=== PATIENT | female | born 1945 | race American Indian/Alaskan Native ===

== ENCOUNTER 2017-02-27 13:19 | Outpatient (CLI) | payer MEDICARE ==
--- NOTE | 2017-02-27 14:31 | Cat Scan Report ---
CT HEAD WITHOUT CONTRAST INDICATION: Headache, blurry vision. COMPARISON: None similar. FINDINGS: Noncontrast head CT demonstrates normal sulci and age-appropriate, symmetric ventricles. [id number] periventricular and numerous white matter hypodense vessel ischemic disease. Small bilateral ganglionic lacunar infarcts measure 4-6 mm as on axial images 21-23. Minimal, benign basal ganglia calcifications. No acute infarct, hemorrhage, mass effect or midline shift. No abnormal extra axial fluid collections. Normal posterior fossa with preserved basilar cisterns. Slight ethmoid and mild sphenoid sinusitis, right more than left. Clear remainder imaged paranasal sinuses and mastoid air cells. Atherosclerotic ICA calcifications. Normal calvarium and scalp. Edentulous jaw with mandibular denture. CONCLUSION: Mild sinusitis without acute intracranial CT abnormality in this patient with age appropriate atrophy and microvascular changes, as described. Thank you for the opportunity to participate in this patient's care.
== END 2017-02-27 13:20 | disposition home or self-care (01) ==
LOC: CT 13:19
PROVIDERS: ATTEND Nurse Practitioner Family
DX: G23.8 Other specified degenerative diseases of basal ganglia (principal); G31.89 Other specified degenerative diseases of nervous system; J32.2 Chronic ethmoidal sinusitis; J32.3 Chronic sphenoidal sinusitis; T18.1 Foreign body in esophagus; I70.0 Atherosclerosis of aorta; H53.8 Other visual disturbances; R09.89 Other specified symptoms and signs involving the circulatory and respiratory systems; X58.XXXS Exposure to other specified factors, sequela
CPT/HCPCS: 70450

== ENCOUNTER 2017-07-18 21:23 | Emergency (ER) | payer MEDICARE, OTHER ==
[2017-07-18 22:19] LABS: Basophils % (Auto) 0.6 % (0.0-1.8); Eosinophils # (Auto) 0.2 K/mm3 (0.0-0.4); Eosinophils % (Auto) 4.2 % (0.0-4.3); Hematocrit 32.4 % (30.3-42.9); Hemoglobin 10.8 gm/dl (10.1-14.3); Lymphocytes # (Auto) 1.7 K/mm3 (1.2-5.4); Lymphocytes % (Auto) 30.2 % (13.4-35.0); Mean Corpuscular HGB Conc 33 % (30-34); Mean Corpuscular Hemoglobin 31 pg (28-32); Mean Corpuscular Volume 94 fl (79-97); Monocytes # (Auto) 0.6 K/mm3 (0.0-0.8); Monocytes % (Auto) 10.6 % (0.0-7.3); Platelet Count 324 K/mm3 (140-440); Red Blood Count 3.46 M/mm3 (3.65-5.03); Red Cell Distribution Width 15.5 % (13.2-15.2)
[2017-07-18 22:28] LABS: Albumin 3.2 g/dL (3.9-5); Calcium 8.9 mg/dL (8.4-10.2)
[2017-07-19] MEDS ORDERED: NORCO 10/325 PO ONE (03:43)
[2017-07-19] MEDS ORDERED: LASIX PO ONE (04:27)
[2017-07-19 04:37] LABS: INR 0.89 (0.87-1.13)
--- NOTE | 2017-07-19 05:35 | Emergency Department Report ---
HPI - General Chief Complaint: Extremity Problem,Nontraumatic Time Seen by Provider: 07/19/17 03:34 - HPI HPI: Patient complain of lower extremity swelling, redness. Patient has not been taking her Lasix as written. Patient denies any chest pain shortness of breath. Patient denies any fever chills or night sweats. Able to ambulate without difficulty. ED Past Medical Hx - Past Medical History Previous Medical History?: Yes Hx Hypertension: Yes Hx Diabetes: Yes Hx Arthritis: Yes Additional medical history: Rheumatoid arthritis. lisa hearing aids, heart murmur - Surgical History Past Surgical History?: Yes Additional Surgical History: knee replacement x 2 - Social History Smoking Status: Former Smoker Substance Use Type: None - Medications Home Medications: Home Medications Medication Instructions Recorded Confirmed Last Taken Type Aspirin [Baby Aspirin] 81 mg PO QDAY 07/12/13 02/05/17 02/04/17 History Folic Acid [Folvite] 1 mg PO QDAY 07/12/13 02/05/17 02/04/17 History Iron 18 mg PO QDAY 07/12/13 02/05/17 02/04/17 History Simvastatin [Zocor TAB] 40 mg PO QHS 07/12/13 02/05/17 02/04/17 History Valsartan/Hydrochlorothiazide 1 each PO QDAY 07/12/13 02/05/17 02/04/17 History [Valsartan-Hctz 320-25 mg] cloNIDine [Catapres] 0.1 mg PO DAILY PRN 07/12/13 02/05/17 02/04/17 History Biotin [Maik Biotin] 10,000 mcg PO DAILY 02/05/17 02/05/17 02/05/17 History Methotrexate(Dose Weekly Only) 5 mg PO QWEEK 02/05/17 02/05/17 02/04/17 History Potassium Chloride [Klor-Con 8] 8 meq PO QDAY 02/05/17 02/05/17 02/04/17 History Ciprofloxacin HCl [Cipro] 500 mg PO BID #14 tablet 02/07/17 Unknown Rx Glimepiride [Amaryl] 2 mg PO QAM #90 tablet 02/07/17 Unknown Rx metFORMIN [Glucophage] 500 mg PO QDAY #30 tab 02/07/17 Unknown Rx Clindamycin [Clindamycin CAP] 300 mg PO Q8H 7 Days #21 cap 07/19/17 Unknown Rx ED Review of Systems ROS: Stated complaint: BILATERAL LEG EDEMA Other details as noted in HPI Comment: All other systems reviewed and negative Respiratory: denies: no symptoms reported Cardiovascular: denies: chest pain, palpitations, dyspnea on exertion, orthopnea Musculoskeletal: myalgia, other (lower legs redness and swelling.) Physical Exam - Physical Exam Vital Signs: Vital Signs 07/18/17 21:43 Temperature 98.8 F Pulse Rate 108 H Respiratory 18 Rate Blood Pressure 165/78 O2 Sat by Pulse 73 L Oximetry Physical Exam: - Physical Exam Physical Exam: - General Limitations: No Limitations General appearance: alert, in no apparent distress, obese - Head Head exam: Present: atraumatic, normocephalic - Eye Eye exam: Present: normal appearance - ENT ENT exam: Present: mucous membranes moist - Neck Neck exam: Present: normal inspection - Respiratory Respiratory exam: Present: normal lung sounds bilaterally. Absent: respiratory distress - Cardiovascular Cardiovascular Exam: Present: normal rhythm, normal rate. Absent: systolic murmur, diastolic murmur, rubs, gallop - GI/Abdominal GI/Abdominal exam: Present: soft, normal bowel sounds - Extremities Exam Extremities exam: Present: 1+ edema bilaterally, minimal redness. - Back Exam Back exam: Present: normal inspection - Neurological Exam Neurological exam: Present: alert, oriented X3 - Psychiatric Psychiatric exam: normal affect and mood - Skin Skin exam: Present: warm, dry, intact, normal color. Absent: rash ED Course Vital Signs 07/18/17 21:43 Temperature 98.8 F Pulse Rate 108 H Respiratory 18 Rate Blood Pressure 165/78 O2 Sat by Pulse 73 L Oximetry ED Medical Decision Making - Lab Data Result diagrams: 07/18/17 22:00 07/18/17 22:00 Critical care attestation.: If time is entered above; I have spent that time in minutes in the direct care of this critically ill patient, excluding procedure time. ED Disposition Clinical Impression: Lymphedema of both lower extremities, Cellulitis Disposition: DC-01 TO HOME OR SELFCARE Is pt being admited?: No Does the pt Need Aspirin: No Condition: Stable Instructions: Cellulitis (ED), Leg Edema (ED) Prescriptions: Clindamycin [Clindamycin CAP] 300 mg PO Q8H 7 Days #21 cap Referrals: CALDERON MOORE MD [Primary Care Provider] - 3-5 Days
[2017-07-19 05:52] VITALS: BP 144/81
== END 2017-07-19 05:58 | disposition home or self-care (01) ==
LOC: ED 21:23
DX: L03.116 Cellulitis of left lower limb (principal); L03.115 Cellulitis of right lower limb; I10 Essential (primary) hypertension; E11.9 Type 2 diabetes mellitus without complications; Z87.891 Personal history of nicotine dependence; Z79.82 Long term (current) use of aspirin
CPT/HCPCS: 36415; 80053; 83880; 85025; 85610; 85730; 93005; 93010; 99283

== ENCOUNTER 2021-10-11 08:42 | Emergency (ER) | payer MEDICARE ==
[2021-10-11] MEDS ORDERED: cloNIDine 0.2 MG TAB PO ONE (10:16)
[2021-10-11] MEDS ORDERED: TETANUS,DIPH,PERTUSS(ACELL) VACCINE 0.5 ML SYRINGE IM ONE (12:20)
[2021-10-11] MEDS ORDERED: cefTRIAXone/NS 1 GM/50 ML 1 GM/50 ML BAG IV ONE (12:21)
[2021-10-11 13:34] LABS: Basophils # (Auto) 0.1 K/mm3 (0.0-0.1); Basophils % (Auto) 1.8 % (0.0-1.8); Eosinophils # (Auto) 0.3 K/mm3 (0.0-0.4); Eosinophils % (Auto) 4.7 % (0.0-4.3); Hematocrit 32.8 % (30.3-42.9); Hemoglobin 10.7 gm/dl (10.1-14.3); Lymphocytes # (Auto) 1.2 K/mm3 (1.2-5.4); Lymphocytes % (Auto) 20.1 % (13.4-35.0); Mean Corpuscular HGB Conc 33 % (30-34); Mean Corpuscular Volume 92 fl (79-97); Monocytes # (Auto) 0.4 K/mm3 (0.0-0.8); Monocytes % (Auto) 5.9 % (0.0-7.3); Platelet Count 276 K/mm3 (140-440); Red Blood Count 3.58 M/mm3 (3.65-5.03); Red Cell Distribution Width 15.9 % (13.2-15.2)
[2021-10-11 13:59] LABS: Albumin 4.2 g/dL (3.9-5); Calcium 9.3 mg/dL (8.4-10.2)
--- NOTE | 2021-10-11 14:46 | Emergency Department Report ---
ED General Adult HPI - General Chief complaint: Animal Bite Stated complaint: INSECT BITE Time Seen by Provider: 10/11/21 12:18 Source: patient Mode of arrival: Ambulatory Limitations: No Limitations - History of Present Illness Initial comments: pt presents to ed with insect bite on abd -: Gradual, days(s) Location: abdomen Radiation: non-radiation Severity scale (0 -10): 2 Quality: aching Associated Symptoms: denies: denies other symptoms, confusion, chest pain - Related Data Home Medications Medication Instructions Recorded Confirmed Last Taken Aspirin [Baby Aspirin] 81 mg PO QDAY 07/12/13 02/05/17 02/04/17 Folic Acid [Folvite] 1 mg PO QDAY 07/12/13 02/05/17 02/04/17 Iron [Iron 18 MG TAB] 18 mg PO QDAY 07/12/13 02/05/17 02/04/17 Simvastatin (Nf) [Zocor TAB] 40 mg PO QHS 07/12/13 02/05/17 02/04/17 Valsartan/Hydrochlorothiazide 1 each PO QDAY 07/12/13 02/05/17 02/04/17 [Valsartan-Hctz 320-25 mg] cloNIDine [Catapres] 0.1 mg PO DAILY PRN 07/12/13 02/05/17 02/04/17 Biotin [Maik Biotin] 10,000 mcg PO DAILY 02/05/17 02/05/17 02/05/17 Potassium Chloride [Klor-Con 8] 8 meq PO QDAY 02/05/17 02/05/17 02/04/17 metHOTREXate(DOSE WEEKLY ONLY) 5 mg PO QWEEK 02/05/17 02/05/17 02/04/17 [Methotrexate(Dose Weekly Only)] Previous Rx's Medication Instructions Recorded Last Taken Type Ciprofloxacin HCl [Cipro] 500 mg PO BID #14 tablet 02/07/17 Unknown Rx Glimepiride [Amaryl] 2 mg PO QAM #90 tablet 02/07/17 Unknown Rx metFORMIN [Glucophage] 500 mg PO QDAY #30 tab 02/07/17 Unknown Rx Clindamycin [Clindamycin CAP] 300 mg PO Q8H 7 Days #21 cap 07/19/17 Unknown Rx Mupirocin [Bactroban 2% OINT] 1 applic TP TID #1 tube 10/11/21 Unknown Rx Sulfamethoxazole/Trimethoprim 1 each PO BID #14 10/11/21 Unknown Rx [Bactrim DS TAB] Allergies Allergy/AdvReac Type Severity Reaction Status Date / Time No Known Allergies Allergy Unverified 07/12/13 11:27 ED Review of Systems ROS: Stated complaint: INSECT BITE Other details as noted in HPI Constitutional: denies: chills, fever Eyes: denies: eye pain, eye discharge, vision change ENT: denies: ear pain, throat pain Respiratory: denies: cough, shortness of breath, wheezing Cardiovascular: denies: chest pain, palpitations Endocrine: no symptoms reported Gastrointestinal: denies: abdominal pain, nausea, diarrhea Genitourinary: denies: urgency, dysuria, discharge Musculoskeletal: denies: back pain, joint swelling, arthralgia Skin: denies: rash, lesions Neurological: denies: headache, weakness, paresthesias Psychiatric: denies: anxiety, depression Hematological/Lymphatic: denies: easy bleeding, easy bruising ED Past Medical Hx - Past Medical History Hx Hypertension: Yes Hx Diabetes: Yes Hx Arthritis: Yes Additional medical history: Rheumatoid arthritis. lisa hearing aids, heart murmur - Surgical History Additional Surgical History: knee replacement x 2 - Social History Smoking Status: Former Smoker Substance Use Type: None - Medications Home Medications: Home Medications Medication Instructions Recorded Confirmed Last Taken Type Aspirin [Baby Aspirin] 81 mg PO QDAY 07/12/13 02/05/17 02/04/17 History Folic Acid [Folvite] 1 mg PO QDAY 07/12/13 02/05/17 02/04/17 History Iron [Iron 18 MG TAB] 18 mg PO QDAY 07/12/13 02/05/17 02/04/17 History Simvastatin (Nf) [Zocor TAB] 40 mg PO QHS 07/12/13 02/05/17 02/04/17 History Valsartan/Hydrochlorothiazide 1 each PO QDAY 07/12/13 02/05/17 02/04/17 History [Valsartan-Hctz 320-25 mg] cloNIDine [Catapres] 0.1 mg PO DAILY PRN 07/12/13 02/05/17 02/04/17 History Biotin [Maik Biotin] 10,000 mcg PO DAILY 02/05/17 02/05/17 02/05/17 History Potassium Chloride [Klor-Con 8] 8 meq PO QDAY 02/05/17 02/05/17 02/04/17 History metHOTREXate(DOSE WEEKLY ONLY) 5 mg PO QWEEK 02/05/17 02/05/17 02/04/17 History [Methotrexate(Dose Weekly Only)] Ciprofloxacin HCl [Cipro] 500 mg PO BID #14 tablet 02/07/17 Unknown Rx Glimepiride [Amaryl] 2 mg PO QAM #90 tablet 02/07/17 Unknown Rx metFORMIN [Glucophage] 500 mg PO QDAY #30 tab 02/07/17 Unknown Rx Clindamycin [Clindamycin CAP] 300 mg PO Q8H 7 Days #21 cap 07/19/17 Unknown Rx Mupirocin [Bactroban 2% OINT] 1 applic TP TID #1 tube 10/11/21 Unknown Rx Sulfamethoxazole/Trimethoprim 1 each PO BID #14 10/11/21 Unknown Rx [Bactrim DS TAB] ED Physical Exam - General Limitations: No Limitations General appearance: alert, in no apparent distress - Head Head exam: Present: atraumatic, normocephalic - Eye Eye exam: Present: normal appearance - ENT ENT exam: Present: mucous membranes moist - Neck Neck exam: Present: normal inspection - Respiratory Respiratory exam: Present: normal lung sounds bilaterally. Absent: respiratory distress - Cardiovascular Cardiovascular Exam: Present: regular rate, normal rhythm. Absent: systolic murmur, diastolic murmur, rubs, gallop - GI/Abdominal GI/Abdominal exam: Present: soft, normal bowel sounds - Extremities Exam Extremities exam: Present: normal inspection - Back Exam Back exam: Present: normal inspection - Neurological Exam Neurological exam: Present: alert, oriented X3 - Psychiatric Psychiatric exam: Present: normal affect, normal mood - Skin Skin exam: Present: erythema, vesicles. Absent: rash ED Course Vital Signs 10/11/21 10/11/21 10/11/21 09:45 10:13 10:16 Temperature 98.4 F Pulse Rate 65 70 57 L Respiratory 16 17 17 Rate Blood Pressure 240/92 Blood Pressure 228/86 [Left] O2 Sat by Pulse 99 Oximetry 10/11/21 10/11/21 10/11/21 10:30 10:46 11:00 Temperature Pulse Rate 57 L 61 58 L Respiratory 16 17 16 Rate Blood Pressure 198/73 204/77 203/76 Blood Pressure [Left] O2 Sat by Pulse Oximetry 10/11/21 10/11/21 10/11/21 11:16 11:30 11:46 Temperature Pulse Rate 62 60 68 Respiratory 17 14 16 Rate Blood Pressure 214/82 202/76 211/76 Blood Pressure [Left] O2 Sat by Pulse Oximetry 10/11/21 10/11/21 10/11/21 12:00 12:16 12:30 Temperature Pulse Rate 62 64 63 Respiratory 15 15 15 Rate Blood Pressure 191/72 208/87 212/78 Blood Pressure [Left] O2 Sat by Pulse Oximetry 10/11/21 13:55 Temperature Pulse Rate 59 L Respiratory Rate Blood Pressure Blood Pressure [Left] O2 Sat by Pulse Oximetry ED Medical Decision Making - Lab Data Result diagrams: 10/11/21 12:30 10/11/21 12:30 Critical care attestation.: If time is entered above; I have spent that time in minutes in the direct care of this critically ill patient, excluding procedure time. ED Disposition Clinical Impression: Insect bite, Abdominal wall cellulitis Disposition: 01 HOME / SELF CARE / HOMELESS Is pt being admited?: No Does the pt Need Aspirin: No Condition: Stable Instructions: Tick Bite Information, Adult, [id number], Cellulitis, Adult Prescriptions: Sulfamethoxazole/Trimethoprim [Bactrim DS TAB] 1 each PO BID #14 Mupirocin [Bactroban 2% OINT] 1 applic TP TID #1 tube
[2021-10-11 16:36] VITALS: BP 182/41
== END 2021-10-11 16:39 | disposition home or self-care (01) ==
LOC: ED 08:42
DX: S30.861A Insect bite (nonvenomous) of abdominal wall, initial encounter (principal); L03.311 Cellulitis of abdominal wall; Z87.891 Personal history of nicotine dependence; Z79.899 Other long term (current) drug therapy; W57.XXXA Bitten or stung by nonvenomous insect and other nonvenomous arthropods, initial encounter; Y93.89 Activity, other specified; Y92.89 Other specified places as the place of occurrence of the external cause; Y99.8 Other external cause status
CPT/HCPCS: 36415; 80053; 85025; 86140; 90471; 90715; 96365; 99283; J0696